=== PATIENT | female | born 1970 | race Two or more races ===

== ENCOUNTER 2020-07-27 15:10 | Emergency (ER) | payer OTHER ==
[~2020-07-27] VITALS: Ht 154.9 cm; Wt 67.2 kg
--- NOTE | 2020-07-27 15:46 | PHYS DOC ---
Past Medical History Past Medical History: No Pertinent History Past Surgical History: No Surgical History Smoking Status: Never Smoker Alcohol Use: None General Adult EDM: Chief Complaint: FACE PROBLEM HPI: HPI: Patient is a 50 year old female who presents with facial swelling. Patient received first dose of Moderna Covid vaccine yesterday at 2 PM. She felt fine after first receiving the vaccine. This morning around 9 AM patient started to develop facial angioedema around her upper lip and around her orbits she reported having minor problems talking and breathing this morning. She has never had symptoms like this before. Says that she feels like her throat is swollen, but has been able to eat liquid foods such as yogurt and drink normally today. She took dueg-iet-srmacma allergy and pain medications this morning which did result in much improvement. Symptoms have been improving since this morning--patient reports not being in pain but still having some discomfort with swallowing. At this point she has no problems breathing, shows no signs of anaphylaxis, has no other extremity swelling, is afebrile, and has no other complaints at this time. Review of Systems: Review of Systems: Constitutional: Denies fever or chills Eyes: Denies redness or eye pain HENT: Denies nasal congestion or sore throat. Reports swelling, minor difficulty swallowing. Respiratory: Denies cough or shortness of breath Cardiovascular: Denies chest pain or palpitations GI: Denies abdominal pain, nausea, or vomiting : Denies dysuria or hematuria Musculoskeletal: Denies back pain or joint pain Integument: Denies rash or skin lesions Neurologic: Denies focal weakness or sensory changes. Reports minor headache. Complete systems were reviewed and found to be within normal limits, except as documented in this note. Heart Score: C/O Chest Pain: N/A Physical Exam: PE: Constitutional: Well developed, well nourished, no acute distress, non-toxic appearance HENT: Normocephalic, atraumatic. Angioedema of upper lip and face noted Eyes: PERRL, EOMI, conjunctiva normal, no discharge Neck: Normal range of motion, no tenderness, supple Lungs & Thorax: No respiratory distress, equal chest rise and fall Abdomen: Soft, no tenderness Skin: Warm, dry, no erythema, no rash Back: No tenderness, no CVA tenderness Extremities: No tenderness, ROM intact, no edema Neurologic: Alert and oriented X 3, normal motor function, normal sensory function, no focal deficits noted Psychologic: Affect normal, judgment normal Current Patient Data: Vital Signs: Vital Signs Date Time Temp Pulse Resp B/P (MAP) Pulse Ox O2 Delivery O2 Flow Rate FiO2 07/27/20 15:21 98.9 94 20 119/62 (81) 98 Room Air 98.9 EKG: EKG: [] Radiology/Procedures: Radiology/Procedures: [] Course & Med Decision Making: Course & Med Decision Making Pertinent Labs and Imaging studies reviewed. (See chart for details) Patient has facial angioedema likely due to allergic response to Covid vaccine yesterday. Patient currently has no difficulty breathing, swallowing, or signs of anaphylaxis. Patient received dose of IM steroids while in the ED, and was discharged with oral steroids, Benadryl and Pepcid. She was told to follow-up with her primary care physician regarding whether or not she should receive seco nd dose of vaccine. Patient reports not having PCP at this time but was given referral list. Patient stable for discharge with outpatient follow-up with PCP. Discussed findings and plan with patient, who acknowledges understanding and agreement. Dwight Disclaimer: Dwight Disclaimer: This electronic medical record was generated, in whole or in part, using a voice recognition dictation system. Departure Departure Impression: Primary Impression: Angioedema Qualified Codes: T78.3XXA - Angioneurotic edema, initial encounter Disposition: 01 DC HOME SELF CARE/HOMELESS Condition: STABLE Patient Instructions: Angioedema, [id number] Additional Instructions: Your facial swelling may be secondary to COVID-19 vaccination. Please follow with your PCP regarding recommendation to receive 2nd dose of vaccination. Due to your reaction, it would likely be in your best interest to NOT receive your 2nd vaccination dose. Scripts Famotidine (PEPCID) 20 Mg Tablet 20 MG PO BID, #10 TAB Prov: MALENA TESFAYE DO 07/27/20 Diphenhydramine Hcl (BENADRYL) 25 Mg Capsule 1 CAP PO Q6HRS PRN for RASH, #20 CAP 0 Refills Prov: MALENA TESFAYE DO 07/27/20 Prednisone (PREDNISONE) 20 Mg Tablet 2 TAB PO DAILY, #8 TAB Start this prescription tomorrow, 07/28/20 Prov: MALENA TESFYAE DO 07/27/20 MALENA TESFAYE DO Jul 27, 2020 15:45
[2020-07-27] MEDS ORDERED: PRED20TA PO (15:50)
[2020-07-27] MEDS ORDERED: DIPH25CA58 PO (15:50)
[2020-07-27] MEDS ORDERED: FAMO-63 PO (15:50)
[2020-07-27] MEDS ORDERED: diphenhydrAMINE HCL 25 MG CAPSULE PO ONE ×2 (16:01→16:30)
[2020-07-27] MEDS ORDERED: FAMOTIDINE 20 MG TABLET. ONE (16:01)
[2020-07-27] MEDS ORDERED: FAMOTIDINE 20 MG TABLET. PO ONE (16:30)
[2020-07-27] MEDS ORDERED: DEXAMETHASONE SOD PHOS 20 MG/5 ML VIAL. IM ONE (16:30)
[2020-07-27 16:36] VITALS: BP 105/67
== END 2020-07-27 16:36 | disposition home or self-care (01) ==
LOC: ER 15:10
DX: T78.3XXA Angioneurotic edema, initial encounter (principal)
CPT/HCPCS: 96372; 99283; J1100; Q0163